=== PATIENT | female | born 1940 | race Caucasian/White ===

== ENCOUNTER 2020-04-28 17:35 | Observation (INO) | payer MEDICARE, OTHER, SELFPAY ==
[2020-04-28] VITALS (14 sets, daily range): BP systolic 97–213; BP diastolic 44–103; PULSE 56–102; RESP 17–30; TEMP 36.5–37; O2SAT 86–99; BMI 24.2
--- NOTE | 2020-04-28 17:53 | XRR_ITS ---
PROCEDURE INFORMATION: Exam: XR Chest, 1 View Exam date and time: 04/28/2020 6:27 PM Age: 79 years old Clinical indication: Shortness of breath; Prior surgery; Surgery date: 6+ months; Surgery type: Stents; Patient HX: Short of breath; Dyspnea x 2 days; HX of copd TECHNIQUE: Imaging protocol: XR of the chest Views: Frontal portable upright view of the chest. COMPARISON: CR Chest 2 views* [id number] 03/30/2019 11:14 AM FINDINGS: Tubes, catheters and devices: EKG leads are present overlying the chest. Lungs: Mild inferior lingular subsegmental atelectasis/scarring, stable. The lungs are otherwise peripherally clear bilaterally. The pulmonary vasculature is normal. Pleural space: No pleural effusion. No pneumothorax. Heart/Mediastinum: The heart is normal in size and contour. Mediastinum: Stable. Vasculature: Mild aortic arch atherosclerotic calcification without ectasia. Bones/joints: Stable. Other findings: Mild pulmonary hyperexpansion. XR/XR chest 1V portable [id number] IMPRESSION: 1. Mild inferior lingular subsegmental atelectasis/scarring, stable. 2. Mild pulmonary hyperexpansion.
--- NOTE | 2020-04-28 18:01 | W.ED.SOB ---
HPI - SOB/Dyspnea General: Chief Complaint: Shortness of Breath/Dyspnea Stated Complaint: sob Time Seen by Provider: 04/28/20 17:42 History of Present Illness: HPI Narrative: Patient presents with a complaint of shortness of breath especially increasing in severity for the past 2 days. Patient has a history of COPD. She wears oxygen at night and as needed but she does not have her oxygen with her. Patient has been staying with relatives. She does have a nebulizer and has been taking breathing treatments. She denies any fever. She denies any chest pain. MD elicited complaint: shortness of breath Pertinent past history: COPD Onset (ago): day(s) Timing: constant and progressively worsening Severity: severe Exacerbating factors: exertion, coughing and smoke Relieving factors: nothing Known history of: COPD Associated symptoms: Reports cough Treatment prior to arrival: bronchodilator Review of Systems General: Reports: 10 or more systems reviewed and unremarkable except in HPI and below Resp: Reports: dyspnea Physical Exam Const: COMMON NORMALS: patient oriented x3 and alert GENERAL APPEARANCE: in distress, disheveled and frail appearing ORIENTATION/CONSCIOUSNESS: Yes awake, Yes oriented to person, Yes oriented to place and Yes oriented to time HENMT: COMMON NORMALS: normocephalic, atraumatic, external ears normal and Normal external nose present HEAD & SCALP: normocephalic and atraumatic FACE & SINUS: normal facial exam NOSE: Normal external nose present EXTERNAL EAR: Yes external ears normal MOUTH: Normal oral and palatal mucosa present Neck/C-Spine: COMMON NORMALS: full ROM, no lymphadenopathy, supple, no meningeal signs and no JVD GENERAL: Yes normal visual inspection Resp: EFFORT & INSPECTION: Yes respiratory distress, Yes pursed lip breathing, Yes labored, Yes uses accessory muscles and Yes audible wheezes AUSCULTATION: wheezes and diminished lung sounds Cardio: COMMON NORMALS: no JVD, regular rate and regular rhythm RATE: regular rate RHYTHM: regular rhythm GI: COMMON NORMALS: Normal to inspection, nondistended, normoactive bowel sounds present, Soft to palpation, non-tender, No hepatosplenomegaly present and no masses INSPECTION: Yes normal to inspection AUSCULTATION: Yes normoactive bowel sounds PALPATION: Yes Soft to palpation and Yes No hepatosplenomegaly present PERCUSSION: normal to percussion : COMMON NORMALS: Yes no CVA tenderness and Yes normal external appearance BLADDER/KIDNEY EXAM: Yes no CVA tenderness Back/Pelvis: COMMON NORMALS: no CVA tenderness, thoracic and lumbar spine normal to inspection, no thoracic nor lumbar tenderness, thoraco-lumbar ROM normal and straight leg raise negative bilaterally Extremity: COMMON NORMALS: normal to inspection, full ROM, capillary refill normal, no joint enlargement, no clubbing, cyanosis or edema, no calf tenderness and no pedal edema Neuro: COMMON NORMALS: patient oriented x3, moves all extremities, no focal motor deficits and no sensory deficits noted SENSORIUM/ORIENTATION: Yes alert, Yes oriented to person, Yes oriented to place and Yes oriented to time MENINGEAL SIGNS: Yes no meningeal signs Psych: COMMON NORMALS: mental status grossly normal, Normal thought process present, cooperative, normal affect and speech normal SPEECH: Yes normal speech THOUGHT PROCESS: Normal thought process present Skin: COMMON NORMALS: no rashes or lesions noted, no wounds, turgor normal, no jaundice, no petechiae and no mottling GENERAL SKIN EXAM: no rashes or lesions noted and turgor normal Course Vital Signs: Vital signs: Vital Signs Temperature 97.7 F 04/28/20 17:42 Pulse Rate 78 04/28/20 18:33 Respiratory Rate 30 H 04/28/20 18:33 Blood Pressure 131/68 04/28/20 18:33 Pulse Oximetry 99 04/28/20 18:33 MDM - SOB/Dyspnea Lab Data: Labs: Lab Results 04/28/20 04/28/20 04/28/20 Range/Units 17:59 17:59 17:59 WBC 16.5 H (4.0-10.0) 10^3/ uL RBC 5.55 H (4.1-5.3) 10^6/u L Hgb 16.7 H (11.5-15.3) g/dL Hct 52.6 H (37.0-47.0) % MCV 94.8 (81-99) fL MCH 30.1 (28.0-34.0) pg MCHC 31.7 (30.0-36.0) g/dL RDW 12.8 (12.1-15.1) % Plt Count 295 (130-400) 10^3/c mm MPV 9.3 (7.4-10.4) fL Neut % (Auto) 41.0 % Lymph % (Auto) 11.9 % Stephenson % (Auto) 4.6 % Eos % (Auto) 41.0 % Baso % (Auto) 0.6 % Neut # (Auto) 6.75 (1.8-7.7) 10^3/u L Lymph # (Auto) 2.0 (0.8-4.8) 10^3/u L Stephenson # (Auto) 0.8 (0.2-0.9) 10^3/u L Eos # (Auto) 6.7 H (0.0-0.8) 10^3/u L Baso # (Auto) 0.1 (0.0-0.1) 10^3/u L Nucleated RBC % (a uto) 0 % Nucleated RBCs # 0.0 /100WBC Sodium 139 (136-145) mmol/L Potassium 4.6 (3.5-5.1) mmol/L Chloride 98 (98-107) mmol/L Carbon Dioxide 29 (22-29) mmol/L Anion Gap 16.6 (5-19) BUN 18 (8-23) mg/dL Creatinine 0.9 (0.5-0.9) mg/dL GFR Calculation Not Reportable Glucose 106 (65-115) mg/dL Calculated Osmolal ity 285 (285-295) mOsm/k g Lactic Acid 2.1 (0.5-2.2) mmol/L Calcium 10.1 (8.5-10.5) mg/dL Total Bilirubin 0.2 (0.15-1.2) mg/dL AST 17 (0-32) U/L ALT 13 (0-33) U/L Alkaline Phosphata se 86 (35-105) IU/L NT-Pro-B Natriuret Pep 786 H (0-450) pg/mL Total Protein 7.6 (6.6-8.7) g/dL Albumin 4.6 (3.5-5.2) g/dL Globulin 3.0 (1.3-4.6) g/dL Discharge Plan Discharge Patient Disposition: Admitted As Inpatient Clinical Impression: Acute exacerbation of chronic obstructive airways disease Community acquired pneumonia Qualifiers: Laterality: right Lung location: middle lobe of lung Qualified Code(s): J18.9 - Pneumonia, unspecified organism Condition: Fair Coding Level of Care Code ED Senior Talent Management Consultant for [employer] Fwd Exam Comprehensive
[2020-04-28 18:06] LABS: Basophils # 0.1 10^3/uL (0.0-0.1); Basophils % 0.6 %; Eosinophils # 6.7 10^3/uL (0.0-0.8); Hematocrit 52.6 % (37.0-47.0); Hemoglobin 16.7 g/dL (11.5-15.3); Lymphocytes % 11.9 %; Mean Corpuscular HGB Conc 31.7 g/dL (30.0-36.0); Mean Corpuscular Hemoglobin 30.1 pg (28.0-34.0); Mean Corpuscular Volume 94.8 fL (81-99); Mean Platelet Volume 9.3 fL (7.4-10.4); Monocytes # 0.8 10^3/uL (0.2-0.9); Monocytes % 4.6 %; Neutrophils # 6.75 10^3/uL (1.8-7.7); Nucleated Red Blood Cells % 0 %; Platelet Count 295 10^3/cmm (130-400); Red Blood Count 5.55 10^6/uL (4.1-5.3); Red Cell Distribution Width 12.8 % (12.1-15.1); White Blood Count 16.5 10^3/uL (4.0-10.0)
[2020-04-28] MEDS: sodium chloride 0.9% 500 ML 999 ML IV (18:09)
[2020-04-28 18:48] LABS: Lactic Sepsis W/Reflex 2.1 mmol/L (0.5-2.2)
[2020-04-28 18:59] LABS: Alanine Aminotransferase 13 U/L (0-33); Albumin Level 4.6 g/dL (3.5-5.2); Alkaline Phosphatase 86 IU/L (35-105); Anion Gap 16.6 (5-19); Aspartate Amino Transferase 17 U/L (0-32); Blood Urea Nitrogen 18 mg/dL (8-23); Calcium 10.1 mg/dL (8.5-10.5); Carbon Dioxide 29 mmol/L (22-29); Chloride 98 mmol/L (98-107); Glucose 106 mg/dL (65-115); NT Pro B Type Natriuretic Pept 786 pg/mL (0-450); Osmolality Calculated 285 mOsm/kg (285-295); Potassium 4.6 mmol/L (3.5-5.1); Sodium 139 mmol/L (136-145); Total Bilirubin 0.2 mg/dL (0.15-1.2); Total Protein 7.6 g/dL (6.6-8.7)
[2020-04-28] MEDS: cefTRIAXone 1,000 MG in sodium chloride 0.9% (plus) 50 ML 100 MG IV (19:05)
--- NOTE | 2020-04-28 19:18 | PM.HP ---
Providers/Chief Complaint Chief Complaint: sob History of Present Illness Louise Trinh is a 79 year old female who carries history of COPD, uses 2 L of oxygen at night, hypertension, came in with worsening shortness of breath. Patient is stating that for about a month she has not been using her oxygen because she is currently doing with her sister and could not carry her oxygen tank. She still smoking few cigarettes a day, she did not notice any fever, chills, nausea, vomiting, myalgias. She is endorsing chronic cough with white frothy sputum production which has not increased in quantity. Today she decided to come to the hospital because of active audible wheezing. Of note she was prescribed 14 days of antibiotics by her PCP for possible pneumonia in April, she was also given prednisone taper as well. She is denying chest pain, orthopnea, PND, she is endorsing mild physical activity not able to carry strenuous activities on daily basis because of her shortness of breath on exertion. Diagnosis in the ER revealed normal hemodynamics, she is afebrile current requiring 3 L of nasal cannula, ABG revealed hypoxia, chest x-ray is showing interstitial thickening with vascular congestion however I do not see any new infiltrate on comparison to previous x-ray, I have requested d-dimer to rule out PE she has been given ceftriaxone and azithromycin in the ER along with breathing treatment Review of Systems Const: Reports: fatigue; Denies: fever(s), chills or body aches Eyes: Denies: change in vision ENMT: Denies: throat pain Card: Reports: dyspnea on exertion; Denies: chest pain Resp: Reports: dyspnea and productive cough; Denies: pain on inspiration GI: Reports: constipation; Denies: abdominal pain, nausea or vomiting : Denies: flank pain Musc: Denies: neck pain Skin/Breast: Denies: rash Neuro: Denies: headache(s) Psych: Denies: anxiety or depression Endo: Denies: polyuria Lukas/Lymph: Denies: easy bruising All/Imm: Denies: urticaria Medications/Allergies Home Medications Medication Instructions Recorded Confirmed Last Taken Type acetaminophen [Tylenol] 325 mg PO QID PRN 04/28/20 04/28/20 Unknown History albuterol sulfate See Rx Instructions .ROUTE .COMPLEX 04/28/20 04/28/20 04/28/20 History fluticasone propionate 1 spray INTRANASAL DAILY 04/28/20 04/28/20 04/27/20 History ibuprofen 200 mg PO Q6H PRN 04/28/20 04/28/20 Unknown History lisinopril 20 mg PO DAILY 04/28/20 04/28/20 04/28/20 History coezqfpxtqrg-Mc-sewp-minerals 1 tab PO DAILY 04/28/20 04/28/20 04/28/20 History [Multiple Vitamin, Womens] simvastatin 40 mg PO DAILY 04/28/20 04/28/20 Unknown History Allergies Allergy/AdvReac Type Severity Reaction Status Date / Time No Known Allergies Allergy Verified 04/28/20 18:38 PFSH Acute PFSH: Medical History (Updated 04/28/20 @ 22:41 by Tere Mercer MD) Aortic aneurysm COPD (chronic obstructive pulmonary disease) Hypertension LVH (left ventricular hypertrophy) Oxygen dependent Polycythemia Sinus bradycardia Surgical History (Updated 04/28/20 @ 19:48 by Tere Mercer MD) S/P abdominal aortic aneurysm repair Family History (Updated 04/28/20 @ 19:49 by Tere Mercer MD) Denies family history of Hypertension Social History (Updated 04/28/20 @ 19:49 by Tere Mercer MD) Smoking and tobacco status: current every day smoker cigarettes [ Other cigarette details: Less than half pack a day, occasional ] Alcohol intake: never Substance/Drug Use: never Household members: family Housing: House Vitals/I&O/Wt Last Vital Signs Temp 97.7 F 04/28/20 17:42 Pulse 78 04/28/20 18:33 Resp 30 H 04/28/20 18:33 BP 131/68 04/28/20 18:33 Pulse Ox 99 04/28/20 18:33 Weight last 48 hrs Weight 68.039 kg Physical Exam Narrative: EXAM NARRATIVE: Head to toe examination This is a frail elderly female Audible wheezing on entering the room noticed Respiratory rate 21-25 Patient is able to give me above-mentioned detail, has pursed lip breathing with very mild conversational dyspnea Bilateral breath sounds with diffuse wheezing, prolonged expiratory phase Abdomen soft nontender bowel sounds present Neurologically nonfocal exam Appropriate mood and affect EOMI, PERRLA Lower extremity no signs of edema gangrene ulcer No asymmetrical swelling of legs noticed Currently on 3L nasal cannula saturating well Data : 04/28/20 17:59 04/28/20 17:59 Micro: Microbiology 04/28/20 18:00 Blood Culture - Preliminary Blood SPECIMEN COLLECTED 04/28/20 17:59 Blood Culture - Preliminary Blood SPECIMEN COLLECTED A&P Assessment and plan (1) Acute and chronic respiratory failure with hypoxia: Status: Acute (2) Polycythemia: Status: Acute (3) Acute exacerbation of chronic obstructive airways disease: Status: Acute (4) Pulmonary nodule: Status: Acute Additional A&P Information Acute on chronic hypoxic respiratory failure due to COPD exacerbation Chest x-ray consistent with mild vascular congestion however I do not see any new infiltrates, she has received ceftriaxone and azithromycin in the ER, I highly suspect community-acquired pneumonia at this point, her leukocytosis with high eosinophil count could be secondary to use of steroids, she had recently finished 14 days of antibiotics outpatient, Afebrile, ABG reveals normal pH with hypoxia Rule out PE will get d-dimer I would give her a azithromycin for bronchitis IV steroids for her audible wheezing DuoNeb every 6 as needed Patient has never been intubated, because of her pursed lip breathing and audible wheezing but discussed the possibility of worsening shortness of breath and need of intubation, patient and son in agreement COVID 19 PCR ordered Polycythemia No history of stroke Rule out PE I believe this is secondary to chronic smoking I would not give her aspirin at this point since she does not have any history of hypercoagulability syndrome High BNP Clinically looks dry We will get echo in the morning, BNP 76 Chest x-ray mild vascular congestion Hiatal hernia: No active exacerbation Pulmonary nodule Would recommend follow-up with Dr. Sands for right lower lobe pulmonary nodule Would need CT scan in 6 to 12 months because of active smoking history Full code DVT prophylaxis Lovenox Cardiac diet Attestations Medical Necessity Statement*: Anticipating discharge in less than 48 hours currently need supplemental oxygen for her chronic pulmonary obstructive exacerbation Need to rule out COVID-19 Time Spent in Patient Care: (>than 50% of time spent in counselling and/or direct pt care on unit). 60mins Coding Level of Care Code Acute Agriculture Department Chair for [facility] Fwd Diagnoses Acute and chronic respiratory failure with hypoxia J96.21 Polycythemia D75.1 Acute exacerbation of chronic obstructive airways disease J44.1 Pulmonary nodule R91.1
[2020-04-28] MEDS: azithromycin 500 MG in sodium chloride 0.9% 250 ML 250 MG IV (19:38)
[2020-04-28 19:49] LABS: D Dimer 3.77 ug/mIFEU (0-0.59); Reflex Lactate Order REFLEX LACTIC ORDERD
--- NOTE | 2020-04-28 19:55 | CTR_ITS ---
PROCEDURE INFORMATION: Exam: CT Angiography Chest With Contrast Exam date and time: 04/28/2020 8:42 PM Age: 79 years old Clinical indication: Shortness of breath; Prior surgery; Surgery type: Stents, aaa; Additional info: Hypoxia and dimer high TECHNIQUE: Imaging protocol: Computed tomographic angiography of the chest with intravenous contrast. 3D rendering: MIP and/or 3D reconstructed images were created by the technologist. Radiation optimization: All CT scans at this facility use at least one of these dose optimization techniques: automated exposure control; mA and/or kV adjustment per patient size (includes targeted exams where dose is matched to clinical indication); or iterative reconstruction. Contrast material: OMNI 350; Contrast volume: 79 ml; Contrast route: INTRAVENOUS (IV); COMPARISON: CR XR chest 1V portable [id number] 04/28/2020 6:17 PM RADIATION DOSE METRICS: Total DLP (mGy-cm): 580.12 FINDINGS: Pulmonary arteries: The pulmonary arteries are adequately opacified for evaluation to the subsegmental level. There is no filling defect to suggest embolism. 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 Aorta: There is moderate aortic atherosclerotic disease. Lungs: There is moderate upper lung predominant centrilobular emphysema. There is a 7 mm noncalcified pulmonary nodule in the right lower lobe visible on axial series 3, image 39. The left lung is clear. Pleural space: There is no pleural effusion or pneumothorax. Heart: Heart size is normal. There is no pericardial effusion. Mediastinal space: There is a small sliding-type hiatal hernia. Lymph nodes: There are small calcified lymph nodes in the right hilum and inferior mediastinum. There is no mediastinal or hilar lymphadenopathy. Bones/joints: There is a moderate severity age-indeterminate compression fracture at L2. Soft tissues: The extrathoracic soft tissues are unremarkable. Other findings: Visible structures in the upper abdomen are unremarkable. CT/CT angio chest PE protcl [id number] IMPRESSION: 1. No pulmonary embolism. 2. No acute pulmonary findings. 3. Right lower lobe pulmonary nodule. For patients at low risk (minimal or absent history of smoking and of other known risk factors), recommend CT at 6-12 months, then consider CT at 18-24 months. For patients at high risk (history of smoking or of other known risk factors), recommend CT at 6-12 months, then CT at 18-24 months. (Magdiel et al., Fleischner Society, 2017) 4. Incidental findings above. Radiation Dose CTDIVOL = (mGy): DLP = 580.12 (mGy-cm)
[2020-04-28 20:57] LABS: Lactic Acid level (Lactate) 1.1 mmol/L (0.5-2.2)
[2020-04-28] MEDS: iohexol 350 mg/mL 100 mL Btl IV (21:15)
[2020-04-28] MEDS: enoxaparin 40 mg/0.4 mL Syringe SUBCUT (22:55)
[2020-04-28] MEDS: albuterol 8 gm MDI 4 PUFF INHALATION (23:04)
[2020-04-29] VITALS (27 sets, daily range): BP systolic 99–130; BP diastolic 43–79; PULSE 47–90; RESP 16–32; TEMP 36.6; O2SAT 88–98
[2020-04-29] MEDS: albuterol 8 gm MDI 4 PUFF INHALATION ×3 (03:40→15:43)
[2020-04-29 04:15] LABS: Basophils # 0.1 10^3/uL (0.0-0.1); Basophils % 0.5 %; Eosinophils # 0.2 10^3/uL (0.0-0.8); Eosinophils % 1.9 %; Hematocrit 46.3 % (37.0-47.0); Hemoglobin 14.3 g/dL (11.5-15.3); Lymphocytes # 1.4 10^3/uL (0.8-4.8); Lymphocytes % 13.3 %; Mean Corpuscular HGB Conc 30.9 g/dL (30.0-36.0); Mean Corpuscular Hemoglobin 29.5 pg (28.0-34.0); Mean Corpuscular Volume 95.7 fL (81-99); Mean Platelet Volume 9.4 fL (7.4-10.4); Monocytes # 0.1 10^3/uL (0.2-0.9); Monocytes % 1.2 %; Neutrophils # 8.29 10^3/uL (1.8-7.7); Neutrophils % 81.6 %; Nucleated Red Blood Cells % 0 %; Platelet Count 262 10^3/cmm (130-400); Red Blood Count 4.84 10^6/uL (4.1-5.3); White Blood Count 10.2 10^3/uL (4.0-10.0)
[2020-04-29 04:43] LABS: Anion Gap 14.6 (5-19); Blood Urea Nitrogen 17 mg/dL (8-23); Calcium 9.2 mg/dL (8.5-10.5); Carbon Dioxide 26 mmol/L (22-29); Chloride 104 mmol/L (98-107); Creatinine Clr Calc Pharmacy 55.6003; Glucose 166 mg/dL (65-115); Osmolality Calculated 290 mOsm/kg (285-295); Potassium 4.6 mmol/L (3.5-5.1); Sodium 140 mmol/L (136-145)
[2020-04-29] MEDS: montelukast sodium 10 mg Tablet PO (07:38)
[2020-04-29] MEDS: azithromycin 250 mg Tablet 500 MG PO (07:38)
[2020-04-29] MEDS: atorvastatin 40 mg Tablet 20 MG PO (07:38)
--- NOTE | 2020-04-29 11:21 | P.PN_ITS ---
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 deficits Data : 04/29/20 03:34 04/29/20 03:34 Micro: Microbiology 04/28/20 18:00 Blood Culture - Preliminary Blood SPECIMEN COLLECTED 04/28/20 17:59 Blood Culture - Preliminary Blood SPECIMEN COLLECTED A&P Assessment and plan (1) Acute and chronic respiratory failure with hypoxia: Status: Acute (2) Polycythemia: Status: Acute (3) Acute exacerbation of chronic obstructive airways disease: Status: Acute (4) Pulmonary nodule: Status: Acute Additional A&P Information Acute on chronic hypoxic respiratory failure due to COPD exacerbation Afebrile, ABG reveals normal pH with hypoxia CTA negative for PE IV steroids to continue DuoNeb every 6 as needed COVID 19 PCR ordered, pending Polycythemia No history of stroke Rule out PE I believe this is secondary to chronic smoking I would not give her aspirin at this point since she does not have any history of hypercoagulability syndrome High BNP Clinically looks dry We will get echo in the morning, BNP 76 Chest x-ray mild vascular congestion Hiatal hernia: No active exacerbation Pulmonary nodule Would recommend follow-up with Dr. Sands for right lower lobe pulmonary nodule Would need CT scan in 6 to 12 months because of active smoking history Full code DVT prophylaxis Lovenox Cardiac diet Attestations Medical Necessity Statement*: optimization of respiratory status, pending COVID testing Coding Level of Care Code Acute Sales Account Specialist for g Fwd Diagnoses Acute and chronic respiratory failure with hypoxia J96.21 Polycythemia D75.1 Acute exacerbation of chronic obstructive airways disease J44.1 Pulmonary nodule R91.1
--- NOTE | 2020-04-29 12:49 | PC.RESP ---
SMOKING CESSATION CLASS AND PULMONARY REHAB INFORMATION SENT TO PATIENT.
[2020-04-29 15:27] LABS: Procalcitonin 0.06 ng/mL (0-0.5)
[2020-04-29] MEDS: morphine 4 mg/mL SDV 1 mL 2 MG IVP (19:20)
[2020-04-29] MEDS: ipratropium-albuterol 3 mL Neb INHALATION (20:39)
[2020-04-29] MEDS: enoxaparin 40 mg/0.4 mL Syringe SUBCUT (23:20)
[2020-04-30] VITALS (9 sets, daily range): BP systolic 97–136; BP diastolic 64–83; PULSE 56–80; RESP 16–18; TEMP 36.4–36.9; O2SAT 87–96
--- NOTE | 2020-04-30 07:00 | USCV_ITS ---
Louise Trinh Age: 79 Gender: F : 1940 Exam Date: 04/30/2020 06:17 Ordering Phys: Tere Mercer MD Technologist: Harmony Royal [place] [facility] [place]: CHF BP: 136 / 83 HR: 51 Rhythm: Sinus Technical Quality: Adequate MEASUREMENTS (Male / Female) Normal Values 2D ECHO LV Diastolic Diameter PLAX 3.8 cm 4.2 - 5.9 / 3.9 - 5.3 cm LV Systolic Diameter PLAX 2.6 cm LV Chamber Size 3.0 cm IVS Diastolic Thickness 1.3 cm 0.6 - 1.0 / 0.6 - 0.9 cm IVS Systolic Thickness 1.9 cm LVPW Diastolic Thickness 2.1 cm 0.6 - 1.0 / 0.6 - 0.9 cm LVPW Systolic Thickness 2.0 cm RV Chamber Size 2.6 cm LVOT Diameter 2.1 cm LV Ejection Fraction 2D Teich 61.3 % LV Ejection Fraction MOD 2C 53.1 % LV Ejection Fraction 2C AL 56.0 % LA Diameter 3.8 cm LA Width 2.9 cm LA Height 4.2 cm RA Width 3.3 cm RA Height 3.5 cm Aorta at Sinotubular Diameter 2.4 cm M-MODE LV Diastolic Diameter MM 4.2 cm 4.2 - 5.9 / 3.9 - 5.3 cm LV Systolic Diameter MM 1.8 cm LV Ejection Fraction MM Teich 88.1 % IVS Diastolic Thickness MM 1.7 cm 0.6 - 1.0 / 0.6 - 0.9 cm IVS Systolic Thickness MM 1.7 cm LVPW Diastolic Thickness MM 1.2 cm 0.6 - 1.0 / 0.6 - 0.9 cm LVPW Systolic Thickness MM 1.8 cm Aortic Annulus Diameter 3.2 cm LA Ao Ratio MM 1.2 MV E Point Septal Separation 0.6 cm DOPPLER AV Peak Velocity 131.0 cm/s LVOT Peak Velocity 142.0 cm/s AV Area Cont Eq vti 3.6 cm squared AV Area Cont Eq pk 3.7 cm squared MV Area PHT 2.7 cm squared Mitral E to A Ratio 0.7 MV E' Velocity 8.0 cm/s Mitral E to MV E' Ratio 8.6 Mitral E to LV E' Lateral Ratio 8.6 Mitral E to LV E' Septal Ratio 8.6 TR Peak Velocity 140.0 cm/s TR Peak Gradient 7.8 mmHg TV Peak E Velocity 53.0 cm/s Right Atrial Pressure 3.0 mmHg Pulmonary Artery Systolic Pressu 10.8 mmHg PV Peak Velocity 77.0 cm/s RV Acceleration Time 0.2 s RV Ejection Time 0.4 s RV AcT/ET 0.5 FINDINGS Left Ventricle Normal left ventricular size, systolic function and wall thickness, with no regional wall motion abnormalities. Left ventricular ejection fraction is estimated at 63 %. Normal diastolic function. Right Ventricle Normal right ventricular size and systolic function. Right ventricular systolic pressure 10.8 mmHg. Right Atrium Normal right atrial size. Left Atrium Normal left atrial size. Mitral Valve Structurally normal mitral valve. No mitral valve stenosis. Trace mitral valve regurgitation. Aortic Valve Structurally normal trileaflet aortic valve. No aortic valve stenosis. Mild aortic valve regurgitation. Tricuspid Valve Tricuspid valve not well visualized. Trace tricuspid valve regurgitation. Pulmonic Valve Pulmonic valve not well visualized. Pericardium No pericardial effusion. Echo free space anterior to the right ventricle likely represents a fat pad. Aorta Normal size aortic root and proximal ascending aorta. CONCLUSIONS 1. Normal left ventricular size, systolic function and wall thickness, with no regional wall motion abnormalities. Left ventricular ejection fraction is estimated at 63 %. Normal diastolic function. 2. Normal right ventricular size and systolic function. 3. Mild aortic valve regurgitation. 4. Normal pulmonary artery pressure. Apoorva Payne MD (Electronically Signed) Final Date: 30 April 2020 16:51 S
[2020-04-30] MEDS: lisinopril 20 mg Tablet PO (08:35)
[2020-04-30] MEDS: azithromycin 250 mg Tablet 500 MG PO (08:35)
[2020-04-30] MEDS: montelukast sodium 10 mg Tablet PO (08:35)
[2020-04-30] MEDS: atorvastatin 40 mg Tablet 20 MG PO (08:35)
--- NOTE | 2020-04-30 14:58 | PM.DCS ---
Discharge Providers Date of Admission: 04/28/20 19:18 Date of Discharge: April 30, 2020 Attending Provider at Admission: Tere Mercer MD Attending Provider at Discharge: Alisia Fletcher MD Diagnoses at Discharge Discharge Diagnosis (1) Acute and chronic respiratory failure with hypoxia: Status: Acute (2) Polycythemia: Status: Acute (3) Acute exacerbation of chronic obstructive airways disease: Status: Acute (4) Pulmonary nodule: Status: Acute Reason for Visit Reason for Visit: sob Hospital Course Discharge Summary: Louise Trinh is a 79 year old female who carries history of COPD, uses 2 L of oxygen at night, hypertension, came in with worsening shortness of breath. Patient is stating that for about a month she has not been using her oxygen because she is currently visiting with her sister from [place] and could not carry her oxygen tank. She still smoking few cigarettes a day, she did not notice any fever, chills, nausea, vomiting, myalgias. She presented with significant respiratory distress was not able to carry out daily activities because of shortness of breath. Upon presentation at the ER she was found to be afebrile, using 3 L of oxygen via nasal cannula, ABG with hypoxia, chest x-ray without any gross infiltrates. CTA of the chest was performed to rule out PE and was negative for the same. Of note she had been taking some steroids as an outpatient and her white blood cell count was noted to be elevated to 16.5, likely to be a combination of stress reaction and margination from steroids. She improved significantly with IV steroids, empiric azithromycin and and scheduled nebulizations. During the course of admission she has been requiring 3 L/min of supplemental O2 via nasal cannula. She is being discharged today in stable conditions, arrangements are being made to obtain oxygen for her at discharge with a portable concentrator. 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 Discharge Data Data Completed and Pending: Completed Studies During Hospitalization Category Date Time Status CTA chest [CT ang io chest PE protcl [id number]] Stat Cat Scan 04/28/20 19:55 Completed XR chest 1V mati ble [id number] Urgent Exams 04/28/20 17:53 Completed Pending at discharge Category Date Time Status Bacterial Antigen Stat Lab 04/28/20 21:43 Uncollected Blood Culture Sta t Lab 04/28/20 18:00 Results Legionella Antige n STAT Stat Lab 04/28/20 21:43 Uncollected CV echo complete* [id number] Routine Ultrasound 04/30/20 07:00 Taken Labs from last 24 hours 04/29/20 04/28/20 04:08 19:35 Procalcitonin 0.06 Nasal/Oral COVID-1 9 PCR See comment Vitals: Last Vital Signs Temp 98.5 F 04/30/20 11:50 Pulse 57 L 04/30/20 11:50 Resp 18 04/30/20 11:50 BP 121/70 04/30/20 11:50 Pulse Ox 94 04/30/20 11:50 Discharge Plan Discharge Patient Disposition: Home Condition: Fair Prescriptions: New prednisone 20 mg tablet 20 mg PO BID 5 Days Qty: 10 RF: 0 pantoprazole [Protonix] 40 mg tablet,delayed release (DR/EC) 40 mg PO DAILY 10 Days Qty: 10 RF: 0 Continued lisinopril 20 mg tablet 20 mg PO DAILY RF: 0 simvastatin 40 mg tablet 40 mg PO DAILY RF: 0 albuterol sulfate 90 mcg/actuation HFA aerosol inhaler See Rx Instructions .ROUTE .COMPLEX RF: 0 fluticasone propionate 50 mcg/actuation spray,suspension 1 spray INTRANASAL DAILY RF: 0 Tylenol 325 mg Tablet 325 mg PO QID PRN (Reason: Pain) RF: 0 Multiple Vitamin, Womens Tablet 1 tab PO DAILY RF: 0 Discontinued ibuprofen 200 mg Tablet 200 mg PO Q6H PRN (Reason: Pain) RF: 0 Discharge Orders: Discharge Order (Routine); Ordered 04/30/20 Ordered By: Alisia Fletcher Other Ambulatory Orders: DME: Oxygen (Order) Location: None Selected Ordered By: Alisia Fletcher Referrals: [facility] [Outside] Discharge Diet: Usual diet Discharge Activity: Resume usual activity Discharge Attestations Time Spent in Discharge Care*: less than 30 min Quality Metrics Clinical Quality Measures During this hospital stay, did patient experience: None Coding Level of Care Code 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
--- NOTE | 2020-04-30 16:47 | PC.NURSE ---
Awaiting [facility] to bring patient an oxygen take so that she can be discharged.
== END 2020-04-30 17:55 | disposition home or self-care (01) ==
LOC: ER 19:10 → ICU 22:02 → MEDSURG 04-29 21:09
PROVIDERS: Admitting Provider Internal Medicine; Emergency Provider Family Medicine; Visit Provider Student in an Organized Health Care Education/Training Program
DX: J96.21 Acute and chronic respiratory failure with hypoxia (principal); D75.1 Secondary polycythemia; J44.1 Chronic obstructive pulmonary disease with (acute) exacerbation; R91.1 Solitary pulmonary nodule; Z99.81 Dependence on supplemental oxygen; I10 Essential (primary) hypertension; F17.210 Nicotine dependence, cigarettes, uncomplicated
CPT/HCPCS: 12345; 36415; 71045; 71275; 80048; 80053; 83605; 83880; 84145; 85025; 85378; 87040; 87635; 93306; 94640; 96365; 96367; 96368; 96372; 96375; 99283; 99285; G0378; J0456; J0696; J1650; J2270; J2930; J3535; J7040; J7050; Q0144; Q9967